=== PATIENT | female | born 1945 ===

== ENCOUNTER 2022-05-03 08:21 | Outpatient (CLI) | payer OTHER | END 2022-05-03 08:23 | disposition home or self-care (01) | LOC: SONOGRAMA 08:21 | PROVIDERS: ATTEND Pathology Anatomic Pathology & Clinical Pathology | DX: E04.2 Nontoxic multinodular goiter (principal); E04.1 Nontoxic single thyroid nodule; D34 Benign neoplasm of thyroid gland ==

== ENCOUNTER 2024-11-23 10:44 | Outpatient (CLI) | payer OTHER | END 2024-11-23 10:47 | disposition home or self-care (01) | LOC: SONOGRAMA 10:44 | PROVIDERS: ATTEND Pathology Anatomic Pathology | DX: D34 Benign neoplasm of thyroid gland (principal); E07.89 Other specified disorders of thyroid; E04.1 Nontoxic single thyroid nodule ==